=== PATIENT | male | born 1960 | race Two or more races ===

== ENCOUNTER 2020-06-18 09:36 | Inpatient (IN) | payer OTHER ==
[~2020-06-18] VITALS: Ht 182.9 cm; Wt 72.6 kg
[2020-06-18] MEDS ORDERED: TAMSULOSIN HCL0.4 MG (10:00)
[2020-06-18] MEDS ORDERED: ATORVASTATIN CA10 MG (10:00)
[2020-06-18] MEDS ORDERED: NEURONTIN800 MG (10:01)
[2020-06-18] MEDS ORDERED: AMLODIPINE-OLM1 EAC3 (10:01)
[2020-06-18] MEDS ORDERED: VASOTEC10 MG (10:02)
[2020-06-18] MEDS ORDERED: VITAMIN D3 COM1 EACH (10:03)
[2020-06-18] MEDS ORDERED: ULTRAM50 MG (10:03)
[2020-06-18] MEDS ORDERED: LOSARTAN-HCTZ1 EAC2 (10:04)
[2020-06-18] MEDS ORDERED: ZINC50 M1 (10:04)
[2020-06-18] MEDS ORDERED: FOLIC ACID1 MG (10:05)
[2020-06-18] MEDS ORDERED: OMEPRAZOLE MAGN20 MG (10:06)
[2020-06-25] MEDS ORDERED: TAMS0.4C PO (19:12)
[2020-06-25] MEDS ORDERED: MICRO-K 1010 MEQ PO (19:12)
[2020-06-25] MEDS ORDERED: Lipitor 10MG TABLET PO (19:12)
[2020-06-25] MEDS ORDERED: MEDROLPACK PO (19:12)
== END 2020-06-25 19:42 | disposition home or self-care (01) | DRG 682 ==
LOC: ER 09:36 → SURH 19:52 → SEC-K 19:52 → SURH 21:31
PROVIDERS: ADMIT Internal Medicine; ATTEND Internal Medicine
PROC: B020ZZZ Computerized Tomography (CT Scan) of Brain (ICD-10-PCS; principal; 2020-06-18)
PROC: BW21ZZZ Computerized Tomography (CT Scan) of Abdomen and Pelvis (ICD-10-PCS; 2020-06-18)
PROC: BT43ZZZ Ultrasonography of Bilateral Kidneys (ICD-10-PCS; 2020-06-19)
DX: N17.9 Acute kidney failure, unspecified (principal); G93.41 Metabolic encephalopathy; C64.2 Malignant neoplasm of left kidney, except renal pelvis; C79.71 Secondary malignant neoplasm of right adrenal gland; Z20.822 Contact with and (suspected) exposure to COVID-19; I10 Essential (primary) hypertension; E03.8 Other specified hypothyroidism; Z90.5 Acquired absence of kidney

== ENCOUNTER 2022-02-06 18:52 | Emergency (ER) | payer OTHER ==
[~2022-02-06] VITALS: Ht 177.8 cm; Wt 77.1 kg
[~2022-02-06 18:52] MED LIST: AMLODIPINE-OLM1 EAC3; ATORVASTATIN CA10 MG; FOLIC ACID1 MG; LOSARTAN-HCTZ1 EAC2; Lipitor 10MG TABLET PO; MEDROLPACK PO; MICRO-K 1010 MEQ PO; NEURONTIN800 MG; OMEPRAZOLE MAGN20 MG; TAMS0.4C PO; TAMSULOSIN HCL0.4 MG; ULTRAM50 MG; VASOTEC10 MG; VITAMIN D3 COM1 EACH; ZINC50 M1
[2022-02-06] MEDS ORDERED: LEVOXYL25 MCG PO (19:32)
[2022-02-06] MEDS ORDERED: NORVASC5 MG PO (19:32)
[2022-02-06] MEDS ORDERED: PEPCID AC20 MG (19:33)
[2022-02-06] MEDS ORDERED: CABOMETYX60 MG PO (19:33)
== END 2022-02-06 21:56 | disposition home or self-care (01) ==
LOC: ER 18:52
DX: K59.00 Constipation, unspecified (principal); Z85.528 Personal history of other malignant neoplasm of kidney

== ENCOUNTER 2024-01-28 07:27 | Outpatient (CLI) | payer OTHER ==
[~2024-01-28 07:27] MED LIST changes: +CABOMETYX60 MG PO; +LEVOXYL25 MCG PO; +NORVASC5 MG PO; +PEPCID AC20 MG
== END 2024-01-28 07:28 | disposition home or self-care (01) ==
LOC: NUCLEAR 07:27
PROVIDERS: ATTEND Internal Medicine
DX: I20.9 Angina pectoris, unspecified (principal)
CPT/HCPCS: 78452; 93017; A9500

== ENCOUNTER 2024-10-20 07:56 | Outpatient (CLI) | payer OTHER | END 2024-10-20 07:58 | disposition home or self-care (01) | LOC: NUCLEAR 07:56 | DX: C64.2 Malignant neoplasm of left kidney, except renal pelvis (principal); C77.2 Secondary and unspecified malignant neoplasm of intra-abdominal lymph nodes; C61 Malignant neoplasm of prostate | CPT/HCPCS: 78815; A9552 ==